=== PATIENT | female | born 1960 | race Caucasian/White ===

== ENCOUNTER 2016-05-31 05:45 | Emergency (ER) | payer OTHER ==
[~2016-05-31] VITALS: Ht 165.1 cm; Wt 85.5 kg
[~2016-05-31 05:45] MED LIST: IBUP-1542 PO; POLY17PO6 PO
[2016-05-31 05:46] VITALS: Ht 165.1 cm; Wt 85.5 kg
[2016-05-31] MEDS ORDERED: ASPIRIN 325 MG TAB PO STA (06:04)
[2016-05-31] MEDS ORDERED: NITROGLYCERIN (SL) 0.4 MG TAB SL PRN (06:30)
[2016-05-31] MEDS ORDERED: ONDANSETRON 4 MG INJ IV STA (06:30)
[2016-05-31] MEDS ORDERED: morphine 4 MG/ML VIAL IV STA (06:30)
--- NOTE | 2016-05-31 06:49 | ERD ---
ER Documentation Chief Complaint Date/Time DATE: 05/31/16 TIME: 06:43 Chief Complaint CHEST PAIN WITH SOB, HEADACHE, AND TROUBLE SWALLOWING HPI This is a 55-year-old Austrian-speaking female with a past medical history of anxiety and insomnia. The patient presents to the emergency department complaining of intermittent chest pain that has been present for the past 3 days. She states that the pain is a sharp shooting pain exacerbated by movement , 8 out of 10 in intensity with no pressure-like sensation. She indicates that she has had numbness and tingling to both arms. She denies any weakness of her upper or lower extremities. She denies any neck pain. She denies any pain in her bilateral lower extremities. The patient also indicates she is felt very anxious with palpitations since the onset of the chest discomfort. She felt short of breath that has been intermittent, at rest and she denies any recent travel or prolonged immobilization. She denies any difficulty breathing. She denies a productive or nonproductive cough. She has had no fevers or shaking or chills. Contrary to the triage note the patient states she has not experienced a headache but has experienced dizziness over the past 3 days as well. She denies any abdominal pain. She denies any hemoptysis hematemesis or melanotic stools. She did not take any analgesic medication prior to arrival. The patient had a total abdominal hysterectomy 3 years ago but denies any other surgical history. ROS All systems reviewed and are negative except as per history of present illness. Medications Home Meds Active Scripts Ibuprofen* (Motrin*) 600 Mg Tab, 600 MG PO Q6H Y for PAIN AND OR ELEVATED TEMP, #20 TAB Prov:PRAMOD BHAT MD 03/04/16 Polyethylene Glycol* (Miralax*) 17 Gm Powd.pack, 17 GM PO DAILY, #7 Prov:PRAMOD BHAT MD 03/04/16 Allergies Allergies: Coded Allergies: Penicillins (Unverified Allergy, Unknown, 03/04/16) PMhx/Soc History of Surgery: Yes (appendix, HYSTERECTOMY) Anesthesia Reaction: No Hx Neurological Disorder: No Hx Respiratory Disorders: Yes (ASTHMA) Hx Cardiac Disorders: Yes (htn) Hx Psychiatric Problems: No Hx Miscellaneous Medical Probl: Yes (gerd) Hx Alcohol Use: No Hx Substance Use: No Hx Tobacco Use: No Smoking Status: Never smoker Physical Exam Vitals Vital Signs Date Time Temp Pulse Resp B/P Pulse Ox O2 Delivery O2 Flow Rate FiO2 05/31/16 06:12 Nasal Cannula 1 05/31/16 05:46 98.1 85 18 153/75 100 Physical Exam Constitutional:Well-developed. Well-nourished. HEENT:Normocephalic. Atraumatic.Pupils were equal round reactive to light. Moist mucous membranes.No tonsillar exudates. Funduscopy exam showed sharp optic disc bilaterally venous pulsations are present. Neck: No nuchal rigidity. No lymphadenopathy. No posterior cervical spine tenderness or step-offs. Respiratory: Not using accessory muscles of respiration.Lungs were clear to auscultation bilaterally. No rhonchi. No rales. No wheezing. Cardiovascular: Regular rate regular rhythm.No murmurs. No rubs were appreciated.S1, S2 normal. Distal pulses are palpable 2+ bilaterally. Reproducible bilateral chest wall tenderness with no crepitus no ecchymosis no flail chest that was exacerbated with horizontal movement of the bilateral upper extremities. GI: Abdomen was soft. Nontender. Non Distended. No pulsatile abdominal masses or bruits. No rebound. No guarding. Bowel sounds were present and normal. Muscle skeletal: Full range of motion of both the upper and lower extremities bilaterally.Normal muscle tone.No assymetrical calf tenderness or swelling. Skin: No petechia, no purpura. No lesions on the palms or the soles of the feet. No maculopapular rash. NEURO: Patient was alert, awake, orientated x3.No facial droop. Gait observed and normal with no ataxia.Speech had regular rate and rhythm. No focal neurological deficits. No nystagmus. Results 24 hrs Current Medications Medications (Trade) Dose Ordered Sig/Chloé Route PRN Reason Start Time Stop Time Status Last Admin Dose Admin Aspirin (Aspirin) 325 mg ONCE STAT PO 05/31/16 06:04 05/31/16 06:05 DC Nitroglycerin (Nitroglycerin (Sl Tab) 0.4 Mg) 1 tab Q5M UP TO 3 DOSES PRN SL CHEST PAIN 05/31/16 06:30 Morphine Sulfate (morphine) 4 mg ONCE STAT IV 05/31/16 06:30 05/31/16 06:32 DC Ondansetron HCl (Zofran Inj) 4 mg ONCE STAT IV 05/31/16 06:30 05/31/16 06:32 DC Procedures/MDM The patient presented to the emergency department complaining of chest pain. My clinical evaluation and workup was to distinguish minor causes of chest pain from acute life threatening cardiopulmonary causes such as myocardial infarction , pulmonary embolism, aortic dissection, esophageal rupture, cardiac tamponade, The patient was placed on a disposal worker, continuous pulse oximetry and IV access established by nursing staff. The patient received aspirin and nitroglycerin with no improvement of her chest discomfort. The pain was improved with intravenous morphine and Zofran. 12 Lead EKG tracing ordered and reviewed by myself showed: Normal sinus rhythm of 70 bpm and no arrhythmia. SC interval normal. QRS duration normal. No ST segment elevation No ST segment depression. No changes consistent with acute ischemia. The patients chest pain was reproduced by palpation and horizontal flexion of the arms. It was my clinical impression that the pain was a result of inflammation of the skin and subcutaneous structures of the chest wall versus myocardial ischemia. I felt the patient had low-risk chest pain and could therefore be safely discharged with close follow-up. The patient also complained of shortness of breath. The patient's chest radiograph showed no evidence of pulmonary edema and BNP was normal. Therefore my clinical suspicion was low for congestive heart failure. The patient was a low pretest probability according to the well's criteria and therefore obtained a d-dimer. This was normal and my clinical suspicion was low for pulmonary embolism therefore did not obtain a CT of the patient's chest. The patient also presented to the emergency department complaining of dizziness. My differential diagnosis included but was not limited to hypovolemia , myocardial infarction, pulmonary embolism, hypoglycemia, hypoxia, anemia, vasovagal episode, hypothyroidism, anxiety, peripheral or central vertigo. I did not feel is necessary at this time to obtain a CT scan of the patient's head as there is no signs of increased intracranial pressure or mass-effect. The patient had received Ativan in the emergency department she did appear to have anxiety with palpitations and she did state that this improved her dizziness. The patient was discharged home in fair condition. They were instructed to return to the emergency department at any time if there was any worsening of their condition. The patient stated they would follow up with their PCP in the next 24-48 hours to initiate a suitable medication regimen under the care of their PCP as well as to allow their PCP to monitor any drug reactions. The patient was discharged home with prescriptions after they gave informed consent to the new medication. They were also fully informed by myself on the adverse effects and adverse drug interactions in order to provide adequate safeguards to prevent possible adverse reactions to medications. Departure Diagnosis: Primary Impression: Costochondritis, acute Additional Impressions: Dizziness Shortness of breath Condition: Serious STEVEMABLE May 31, 2016 06:49
[2016-05-31 07:00] LABS: ADD SCAN DIFF NO
--- NOTE | 2016-05-31 07:01 | RADRPT ---
PROCEDURE: Chest. CLINICAL INDICATION: Chest pain. TECHNIQUE: Single frontal view of the chest was obtained. COMPARISON: None. FINDINGS: The cardiac silhouette is within normal limits. The aortic arch is unremarkable. There is no focal consolidation, vascular congestion or pleural effusion. There is no pneumothorax. IMPRESSION: No evidence for active cardiopulmonary disease. .Jose J Bush MD, MD Date Time Electronically viewed and signed by .Jose J Bush MD, on 05/31/2016 07:00 .T/
[2016-05-31 07:03] LABS: BASOPHILS % 0.4 % (0.0-2.0); EOSINOPHILS # 0.2 10^3/ul (0.0-0.5); HEMATOCRIT 42.3 % (37.0-47.0); HEMOGLOBIN 13.5 g/dl (12.0-16.0); LYMPHOCYTES # 3.6 10^3/ul (0.8-2.9); LYMPHOCYTES % 51.5 % (15.0-51.0); MEAN CORPUSCULAR HEMOGLOBIN 27.3 pg (29.0-33.0); MEAN CORPUSCULAR HGB CONC 31.9 g/dl (32.0-37.0); MEAN CORPUSCULAR VOLUME 85.6 fl (82.0-101.0); MONOCYTE # 0.5 10^3/ul (0.3-0.9); MONOCYTES % 7.7 % (0.0-11.0); NEUTROPHIL # 2.6 10^3/ul (1.6-7.5); NEUTROPHILS % 37.3 % (39.0-77.0); PLATELET COUNT 228 10^3/UL (140-415); RED BLOOD COUNT 4.94 10^6/ul (4.20-5.40); WHITE BLOOD COUNT 6.9 10^3/ul (4.8-10.8)
[2016-05-31 07:18] LABS: MEAN PLATELET VOLUME 11.7 fl (7.4-10.4)
[2016-05-31 08:04] LABS: ALBUMIN 4.4 g/dl (3.3-4.9); CHLORIDE 102 mmol/L (97-110); SODIUM 145 mmol/L (135-144)
[2016-05-31 08:06] LABS: CREATININE 0.68 mg/dl (0.44-1.00)
[2016-05-31 08:07] LABS: ALANINE AMINOTRANSFERASE 34 IU/L (13-69); ALBUMIN/GLOBULIN RATIO 1.33; ALKALINE PHOSPHATASE 97 IU/L (42-121); ANION GAP 15 (8-16); ASPARTATE AMINO TRANSFERASE 30 IU/L (15-46); BILIRUBIN,INDIRECT 0.3 mg/dl (0-1.1); BILIRUBIN,TOTAL 0.3 mg/dl (0.2-1.3); BLOOD UREA NITROGEN 17 mg/dl (7-20); CARBON DIOXIDE 32 mmol/L (21-31); CREATINE KINASE 45 IU/L (23-200); GLUCOSE 95 mg/dl (70-220); TOTAL PROTEIN 7.7 g/dl (6.1-8.1)
[2016-05-31 08:08] LABS: CALCIUM 9.7 mg/dl (8.4-10.2)
[2016-05-31 08:16] LABS: B-TYPE NATRIURETIC PEPTIDE 50 PG/ML (0-125)
[2016-05-31 08:19] LABS: CK-MB < 0.22 ng/ml (0.0-2.4); TROPONIN-I < 0.012 ng/ml (0.00-0.12)
[2016-05-31 08:56] LABS: INR 0.95; PROTIME 12.7 Sec (12.2-14.2)
[2016-05-31] MEDS ORDERED: LORAZEPAM 2 MG INJ IV ONE (09:30)
[2016-05-31] MEDS ORDERED: MECL12.574 PO (09:53)
[2016-05-31] MEDS ORDERED: NAPR-260 PO (09:53)
[2016-05-31 12:01] LABS: ADD UMIC YES; URINE BILIRUBIN (Dip) NEGATIVE (NEGATIVE); URINE BLOOD (Dip) TRACE (NEGATIVE); URINE COLOR LT. YELLOW (YELLOW); URINE GLUCOSE (Dip) NEGATIVE (NEGATIVE); URINE KETONES (Dip) NEGATIVE (NEGATIVE); URINE LEUKOCYTE ESTERASE (Dip) TRACE (NEGATIVE); URINE NITRITE (Dip) NEGATIVE (NEGATIVE); URINE TOTAL PROTEIN (Dip) NEGATIVE (NEGATIVE); URINE UROBILINOGEN (Dip) 0.2 E.U./dL (0.1-1.0)
[2016-05-31 12:10] LABS: SQUAMOUS EPITHELIAL CELL,UR MODERATE; URINE RBCS 0-2 /HPF (0)
[2016-05-31 12:39] VITALS: BP 114/69; PULSE 83; RESP 18; TEMP 97.4
== END 2016-05-31 12:39 | disposition home or self-care (01) ==
LOC: E/R 05:45
DX: M94.0 Chondrocostal junction syndrome [Tietze] (principal); R40.2252 Coma scale, best verbal response, oriented, at arrival to emergency department; R42 Dizziness and giddiness; R06.02 Shortness of breath; I10 Essential (primary) hypertension; J45.909 Unspecified asthma, uncomplicated; R40.2142 Coma scale, eyes open, spontaneous, at arrival to emergency department; R40.2362 Coma scale, best motor response, obeys commands, at arrival to emergency department
CPT/HCPCS: 36415; 71010; 80053; 81001; 82550; 82553; 83880; 84484; 85025; 85378; 85610; 85730; 93005; 96374; 96375; 99285; J2060; J2270; J2405; 81003